=== PATIENT | male | born 1980 | race Caucasian/White ===

== ENCOUNTER 2017-08-11 15:47 | Emergency (ER) | payer SELFPAY ==
[~2017-08-11] VITALS: Ht 180.3 cm; Wt 158.3 kg
[~2017-08-11 15:47] MED LIST: BACT800T5 PO; HYDR-3533 PO; LISI-586 PO; TEST200I13 IM; ZOLP10TA3 PO
[2017-08-11 16:05] VITALS: BP 154/85; PULSE 109; RESP 16; TEMP 98.7; O2SAT 95
[2017-08-11] MEDS ORDERED: SODIUM CHLORIDE 0.9% FLUSH 10 ML FLUSH IVF PRN (16:15)
[2017-08-11 16:24] LABS: AUTOMATED NEUTROPHIL # 2.6 TH/MM3 (1.8-7.7); BASOPHIL % 0.3 % (0.0-2.0); EOSINOPHIL # 0.1 TH/MM3 (0-0.4); EOSINOPHIL % 1.3 % (0.0-4.0); HEMATOCRIT 47.7 % (39.0-51.0); HEMO FLAGS DIFF FINAL; LYMPH % 44.4 % (9.0-44.0); LYMPHOCYTE # 2.5 TH/MM3 (1.0-4.8); MEAN CELL VOLUME 91.5 FL (80.0-100.0); MEAN CORPUSCULAR HEMOGLOBIN 30.7 PG (27.0-34.0); MEAN CORPUSCULAR HGB CONC 33.5 % (32.0-36.0); MONO % 9.4 % (0.0-8.0); NEUT % 44.6 % (16.0-70.0); PLATELET COUNT 297 TH/MM3 (150-450); RED BLOOD COUNT 5.21 MIL/MM3 (4.50-5.90); WHITE BLOOD COUNT 5.7 TH/MM3 (4.0-11.0)
[2017-08-11 16:33] LABS: CHLORIDE 100 MEQ/L (98-107); POTASSIUM 4.1 MEQ/L (3.5-5.1); SODIUM (NA) 136 MEQ/L (136-145)
[2017-08-11] MEDS ORDERED: TEST200I12 IM (16:33)
[2017-08-11] MEDS ORDERED: DIPH25CA PO (16:33)
[2017-08-11] MEDS ORDERED: AMBI10TA PO (16:33)
[2017-08-11] MEDS ORDERED: LISI20TA PO (16:33)
[2017-08-11] MEDS ORDERED: AMLO5TAB2 PO (16:35)
[2017-08-11 16:37] LABS: ANION GAP 5 MEQ/L (5-15); BICARBONATE 31.2 MEQ/L (21.0-32.0); BLOOD UREA NITROGEN 11 MG/DL (7-18)
[2017-08-11 16:38] LABS: APTT (PATIENT) 25.2 SEC (24.3-30.1); PROTHROMBIN TIME - PATIENT 11.2 SEC (9.8-11.6)
[2017-08-11 16:40] LABS: ALT (GPT) 72 U/L (12-78); AST (GOT) 28 U/L (15-37); GLOMERULAR FILTRATION RATE 68 ML/MIN (>89)
[2017-08-11 16:42] LABS: TOTAL BILIRUBIN ADULT 0.3 MG/DL (0.2-1.0)
[2017-08-11 16:43] VITALS: RESP 16; O2SAT 95
[2017-08-11 16:43] LABS: ALKALINE PHOSPHATASE 62 U/L (45-117); CREATINE KINASE 165 U/L (39-308)
--- NOTE | 2017-08-11 16:49 | RADRPT ---
EXAM DATE/TIME: 08/11/2017 16:27 [facility] COMPARISON: CHEST PA & LAT, February 18, 2015, 17:43. INDICATIONS : Right side chest pain, short of breath, cough MEDICAL HISTORY : Hypertension. SURGICAL HISTORY : None. ENCOUNTER: Initial ACUITY: 1 day PAIN SCORE: 3/10 LOCATION: Bilateral chest FINDINGS: Portable AP view of the chest demonstrates a normal-sized cardiac silhouette. No effusion, consolidat ion, or pneumothorax is visualized. The bones and soft tissues demonstrate no acute abnormality. CONCLUSION: No acute cardiopulmonary abnormality is identified. Herman Wing MD on August 11, 2017 at 16:47 Board Certified Radiologist. This report was verified electronically.
[2017-08-11 16:55] LABS: CKMB 2.7 NG/ML (0.5-3.6)
[2017-08-11] MEDS ORDERED: IOHEXOL 350 MG/ML 10 ML VIAL (for RAD DIAG) IVCONTRAST ONE (17:00)
--- NOTE | 2017-08-11 17:41 | PD ---
HPI Chief Complaint: Chest Pain Time Seen by Provider: 15:54 Travel History International Travel<30 days: No Contact w/Intl Traveler<30days: No Traveled to known affect area: No History of Present Illness HPI 36-year-old male presents with right sided chest pain that started shortly after he got a testosterone shot. He states that after he developed the pain he coughed up a little bit of blood. He states that the pain is sharp. He denies other concurrent complaints. He denies trauma. Pain is worse with movement. He denies other modifying factors. Duration is shortly prior to arrival. He denies prior cardiac history. He states about 10 years ago he had a normal cardiac workup when he had chest pain symptoms. [facility] Past Medical History Diminished Hearing: No Hypertension: Yes Kidney Stones: Yes (QUESTIONABLE) Musculoskeletal: Yes (HX HERNIATED DISC) Immunizations Current: Yes Triglycerides - High: Yes Influenza Vaccination: No Social History Alcohol Use: Yes (MOST DAYS 1-2 DRINKS) Tobacco Use: No (NEVER) Substance Use: No Allergies-Medications (Allergen,Severity, Reaction): Coded Allergies: codeine (Unverified Allergy, Mild, 08/11/17) Reported Meds & Prescriptions Reported Meds & Active Scripts Active Reported Amlodipine (Amlodipine Besylate) 5 Mg Tab 5 Mg PO DAILY Diphenhydramine (Diphenhydramine HCl) 25 Mg Cap 25 Mg PO HS Ambien (Zolpidem Tartrate) 10 Mg Tab 10 Mg PO HS PRN Testosterone Cypionate Inj (Testosterone Cypionate) 200 Mg/Ml Inj 200 Mg IM Q21D Lisinopril-Hctz 20-12.5 Mg Tab 1 Tab PO DAILY Review of Systems Except as stated in HPI: all other systems reviewed are Neg Physical Exam Narrative GENERAL: Well-nourished, well-developed patient. SKIN: Warm and dry. HEAD: Normocephalic and atraumatic. EYES: No injection or drainage. ENT: No nasal drainage noted. NECK: Supple, trachea midline. CARDIOVASCULAR: Regular rate and rhythm RESPIRATORY: Breath sounds equal bilaterally. No accessory muscle use. GASTROINTESTINAL: Abdomen soft, non-tender, nondistended. EXTREMITIES: No edema. NEUROLOGICAL: Awake and alert. Motor and sensory grossly within normal limits. Normal speech. Data Data Last Documented VS Vital Signs Date Time Temp Pulse Resp B/P (MAP) Pulse Ox O2 Delivery O2 Flow Rate FiO2 08/11/17 19:04 08/11/17 18:45 92 16 95 Room Air 08/11/17 16:05 98.7 Orders Orders Electrocardiogram (08/11/17 16:06) Ckmb (Isoenzyme) Profile (08/11/17 16:06) Complete Blood Count With Diff (08/11/17 16:06) Comprehensive Metabolic Panel (08/11/17 16:06) Magnesium (Mg) (08/11/17 16:06) Prothrombin Time / Inr (Pt) (08/11/17 16:06) Act Partial Throm Time (Ptt) (08/11/17 16:06) Troponin I (08/11/17 16:06) Ecg Monitoring (08/11/17 16:06) Bilateral Bp Monitoring (08/11/17 16:06) Iv Access Insert/Monitor (08/11/17 16:06) Oximetry (08/11/17 16:06) Sodium Chloride 0.9% Flush (Ns Flush) (08/11/17 16:15) Chest, Pa & Lat (08/11/17 16:06) Ct Pulmonary Angiogram (08/11/17 ) CKMB (08/11/17 16:15) CKMB% (08/11/17 16:15) Iohexol 350 Inj (Omnipaque 350 Inj) (08/11/17 17:00) Ed Discharge Order (08/11/17 18:26) Labs Laboratory Tests Test 08/11/17 16:15 White Blood Count 5.7 TH/MM3 Red Blood Count 5.21 MIL/MM3 Hemoglobin 16.0 GM/DL Hematocrit 47.7 % Mean Corpuscular Volume 91.5 FL Mean Corpuscular Hemoglobin 30.7 PG Mean Corpuscular Hemoglobin Concent 33.5 % Red Cell Distribution Width 14.0 % Platelet Count 297 TH/MM3 Mean Platelet Volume 8.2 FL Neutrophils (%) (Auto) 44.6 % Lymphocytes (%) (Auto) 44.4 % Monocytes (%) (Auto) 9.4 % Eosinophils (%) (Auto) 1.3 % Basophils (%) (Auto) 0.3 % Neutrophils # (Auto) 2.6 TH/MM3 Lymphocytes # (Auto) 2.5 TH/MM3 Monocytes # (Auto) 0.5 TH/MM3 Eosinophils # (Auto) 0.1 TH/MM3 Basophils # (Auto) 0.0 TH/MM3 CBC Comment DIFF FINAL Differential Comment Prothrombin Time 11.2 SEC Prothromb Time International Ratio 1.0 RATIO Activated Partial Thromboplast Time 25.2 SEC Blood Urea Nitrogen 11 MG/DL Creatinine 1.20 MG/DL Random Glucose 145 MG/DL Total Protein 8.3 GM/DL Albumin 3.7 GM/DL Calcium Level 8.9 MG/DL Magnesium Level 2.0 MG/DL Alkaline Phosphatase 62 U/L Aspartate Amino Transf (AST/SGOT) 28 U/L Alanine Aminotransferase (ALT/SGPT) 72 U/L Total Bilirubin 0.3 MG/DL Sodium Level 136 MEQ/L Potassium Level 4.1 MEQ/L Chloride Level 100 MEQ/L Carbon Dioxide Level 31.2 MEQ/L Anion Gap 5 MEQ/L Estimat Glomerular Filtration Rate 68 ML/MIN Total Creatine Kinase 165 U/L Creatine Kinase MB 2.7 NG/ML Troponin I LESS THAN 0.02 NG/ML MDM Medical Decision Making Medical Screen Exam Complete: Yes Emergency Medical Condition: Yes Medical Record Reviewed: Yes (pmh confirmed) Interpretation(s) EKG is sinus tachycardia at 115 without STEMI criteria Last 24 hours Impressions Chest X-Ray 08/11/17 1606 Signed Impressions: Service Date/Time: Friday, August 11, 2017 16:27 - CONCLUSION: No acute cardiopulmonary abnormality is identified. Herman Wing MD CT Angiography 08/11/17 0000 Signed Impressions: Service Date/Time: Friday, August 11, 2017 17:27 - CONCLUSION: 1. Less than optimal opacification of the pulmonary arteries and therefore less than optimal evaluation for PE. No PE is identified through the lobar level arterial vessels. More distal PE cannot be excluded based on this exam. 2. Otherwise, no acute finding is identified to explain the chest pain. Herman Wing MD CBC & BMP Diagram 08/11/17 16:15 Total Protein 8.3 H, Albumin 3.7, Calcium Level 8.9, Magnesium Level 2.0, Alkaline Phosphatase 62, Aspartate Amino Transf (AST/SGOT) 28, Alanine Aminotransferase (ALT/SGPT) 72, Total Bilirubin 0.3 Differential Diagnosis PE, musculoskeletal, URI, bronchiectasis, atypical cardiac Narrative Course Will check blood work, chest x-ray, CT chest and reevaluate Lab work without emergent findings, CT chest is limited but shows no large PE, lengthy discussion with patient and he is wanting to go home. Offered observation versus delta troponin and he feels comfortable following up as an outpatient. Patient's only risk factor is hypertension and his presentation is atypical so I think this is okay. Given return instructions Diagnosis Primary Impression: Chest pain Qualified Codes: R07.9 - Chest pain, unspecified Additional Impression: Hemoptysis Patient Instructions: General Instructions Additional Instructions: follow with primary on sunday for referral to pulmonary and cardiology and reevaluation, return as needed, tylenol as needed Med/Other Pt SpecificInfo: No Change to Meds Disposition: 01 DISCHARGE HOME Condition: Stable Tanya Delaney MD Aug 11, 2017 17:41
--- NOTE | 2017-08-11 18:07 | RADRPT ---
EXAM DATE/TIME: 08/11/2017 17:27 [facility] COMPARISON: No previous studies available for comparison. INDICATIONS : Right chest pain and cough. IV CONTRAST: 99 cc Omnipaque 350 (iohexol) IV RADIATION DOSE: 21.80 CTDIvol (mGy) ; Patient body habitus MEDICAL HISTORY : Hypertension. Hyperlipedema, renal stones,HND SURGICAL HISTORY : Jaw ENCOUNTER: Initial ACUITY: 1 day PAIN SCALE: 5/10 LOCATION: Right chest TECHNIQUE: Volumetric scanning of the chest was performed using a pulmonary embolism protocol MIP images were re constructed. Using automated exposure control and adjustment of the mA and/or kV according to patien t size, radiation dose was kept as low as reasonably achievable to obtain optimal diagnostic quality images. DICOM format image data is available electronically for review and comparison. Follow-up recommendations for detected pulmonary nodules are based at a minimum on nodule size and pa tient risk factors according to Fleischner Society Guidelines. FINDINGS: PULMONARY ARTERIES: There is poor opacification of the pulmonary arteries with adequate visualization only through the lo bar level vessels. Through this level no PE is identified. More distal PE cannot be excluded on this examination. LUNGS: There is no consolidation or pneumothorax . No concerning pulmonary nodule is visualized. There is a 4 mm calcified granuloma in the right lower lobe. PLEURAE: There is no pleural thickening or pleural effusion. MEDIASTINUM: Heart and great vessels demonstrate no acute finding. No lymphadenopathy is present. There is an AP w indow lymph node that measures 9 mm in short axis diameter. MUSCULOSKELETAL: There are mild degenerative changes of the thoracic spine. MISCELLANEOUS: The visualized upper abdominal organs demonstrate no acute abnormality. CONCLUSION: 1. Less than optimal opacification of the pulmonary arteries and therefore less than optimal evaluati on for PE. No PE is identified through the lobar level arterial vessels. More distal PE cannot be exc luded based on this exam. 2. Otherwise, no acute finding is identified to explain the chest pain. Herman Wing MD on August 11, 2017 at 18:02 Board Certified Radiologist. This report was verified electronically.
[2017-08-11 18:45] VITALS: BP 138/81; PULSE 92; RESP 16; O2SAT 95
--- NOTE | 2017-08-12 12:55 | EKG ---
Date Performed: 08/11/2017 Time Performed: 15:55:31 PTAGE: 36 years EKG: SINUS TACHYCARDIA LOW QRS VOLTAGE IN PRECORDIAL LEADS NONSPECIFIC ST ELEVATION ABNORMAL RHY THM ECG INTERPRETATION BASED ON A DEFAULT AGE OF 40 YEARS PREVIOUS TRACING : 11/23/2007 18.33 Since previous tracing, precordial lead voltage is sl ightly lower; otherwise, no significant change. DOCTOR: Tushar Pratt Interpretating Date/Time 08/12/2017 12:53:38
== END 2017-08-11 19:05 | disposition home or self-care (01) ==
LOC: PHED 15:47
DX: R07.9 Chest pain, unspecified (principal); R04.2 Hemoptysis; R94.31 Abnormal electrocardiogram [ECG] [EKG]; I10 Essential (primary) hypertension; E78.1 Pure hyperglyceridemia; Z87.39 Personal history of other diseases of the musculoskeletal system and connective tissue
CPT/HCPCS: 71020; 71275; 80053; 82550; 82552; 83735; 84484; 85025; 85610; 85730; 93005; 99285; Q9967

== ENCOUNTER 2017-09-13 13:35 | Emergency (ER) | payer OTHER ==
[~2017-09-13] VITALS: Ht 180.3 cm; Wt 158.0 kg
[~2017-09-13 13:35] MED LIST changes: +AMBI10TA PO; +AMLO5TAB2 PO; -BACT800T5 PO; +DIPH25CA PO; -HYDR-3533 PO; -LISI-586 PO; +LISI20TA PO; +TEST200I12 IM; -TEST200I13 IM; -ZOLP10TA3 PO
[2017-09-13 13:46] VITALS: BP 127/77; PULSE 103; RESP 18; TEMP 98.2; O2SAT 93
[2017-09-13] MEDS ORDERED: KETOROLAC TROMETHAMINE 30 MG/ML (IVP) VIAL IV PUSH ONE (14:30)
[2017-09-13] MEDS ORDERED: SODIUM CHLORIDE 0.9% FLUSH 10 ML FLUSH IV FLUSH PRN (14:30)
--- NOTE | 2017-09-13 14:31 | PD ---
HPI Chief Complaint: Pain: Acute or Chronic Time Seen by Provider: 14:19 Travel History International Travel<30 days: No Contact w/Intl Traveler<30days: No Traveled to known affect area: No History of Present Illness HPI Patient comes in complaining of right knee pain ongoing for 3 days. Patient describes pain is pressure-like sensation over his anterior knee. Pain is worse with walking or standing. Patient states he went bowling the night before but denies any trauma. Patient reports he's been using crutches, taking ibuprofen, and alternating between heat and ice. Patient also has concerns that his potassium and magnesium may be off. Patient states that he had diarrhea 2 weeks ago and since has had multiple muscle cramps. Patient states he increased his potassium and magnesium supplements as is a history of low potassium causing his heart to flutter. Patient does have some cramping in his right lower extremity denies anything making it better or worse. PFSH Past Medical History Diminished Hearing: No Hypertension: Yes Kidney Stones: Yes (QUESTIONABLE) Musculoskeletal: Yes (HX HERNIATED DISC) Immunizations Current: Yes Triglycerides - High: Yes Tetanus Vaccination: Unknown Social History Alcohol Use: Yes (MOST DAYS 1-2 DRINKS) Tobacco Use: No (NEVER) Substance Use: No Allergies-Medications (Allergen,Severity, Reaction): Coded Allergies: codeine (Unverified Allergy, Mild, 08/11/17) Reported Meds & Prescriptions Reported Meds & Active Scripts Active Hydrocodone-Acetaminophen 10-325 mg Tab 1 Tab PO Q4H PRN Tramadol (Tramadol HCl) 50 Mg Tab 50 Mg PO Q8H PRN Flexeril (Cyclobenzaprine HCl) 10 Mg Tab 10 Mg PO Q8HR PRN Naprosyn (Naproxen) 500 Mg Tab 500 Mg PO Q12HR PRN Reported Amlodipine (Amlodipine Besylate) 5 Mg Tab 5 Mg PO DAILY Diphenhydramine (Diphenhydramine HCl) 25 Mg Cap 25 Mg PO HS Ambien (Zolpidem Tartrate) 10 Mg Tab 10 Mg PO HS PRN Testosterone Cypionate Inj (Testosterone Cypionate) 200 Mg/Ml Inj 200 Mg IM Q21D Lisinopril-Hctz 20-12.5 Mg Tab 1 Tab PO DAILY Review of Systems Except as stated in HPI: all other systems reviewed are Neg Physical Exam Narrative GENERAL: Well-developed, overly nourished, in no acute distress, and non-ill appearing. SKIN: Focused skin assessment warm and dry. HEAD: Atraumatic. Normocephalic. EYES: Pupils equal and round. EOMI. No scleral icterus. No injection or drainage. ENT: No nasal bleeding or discharge. Mucous membranes pink and moist. NECK: Trachea midline. Supple. No nuclear rigidity. RESPIRATORY: No accessory muscle use. No respiratory distress. MUSCULOSKELETAL: No obvious deformities. No clubbing. No cyanosis. No edema. Decreased range of motion right knee secondary to pain. Knee: Negative patellar apprehension, varus and valgus maneuvers, anterior draw test, and Dane test. FROM distal to injury and equal BL. Strength distal to injury equal BL. NV intact distal to injury. Sensation equal BL 1st web space. Patient is a fluid collection noted over the patella right knee is tender to palpation. Is afebrile nonerythematous, and without crepitus. NEUROLOGICAL: Awake and alert. No obvious cranial nerve deficits. Motor grossly within normal limits. Normal speech. PSYCHIATRIC: Appropriate mood and affect; insight and judgment normal. Data Data Last Documented VS Vital Signs Date Time Temp Pulse Resp B/P (MAP) Pulse Ox O2 Delivery O2 Flow Rate FiO2 09/13/17 15:40 09/13/17 13:46 98.2 103 18 93 Room Air Orders Orders Basic Metabolic Panel (Bmp) (09/13/17 14:29) Iv Access Insert/Monitor (09/13/17 14:29) Sodium Chloride 0.9% Flush (Ns Flush) (09/13/17 14:30) Ketorolac Inj (Toradol Inj) (09/13/17 14:30) Magnesium (Mg) (09/13/17 14:29) Ed Discharge Order (09/13/17 15:30) Splint Or Brace Apply/Monitor (09/13/17 15:30) Labs Laboratory Tests Test 09/13/17 14:45 Blood Urea Nitrogen 9 MG/DL Creatinine 1.00 MG/DL Random Glucose 109 MG/DL Calcium Level 8.7 MG/DL Magnesium Level 2.2 MG/DL Sodium Level 134 MEQ/L Potassium Level 3.8 MEQ/L Chloride Level 96 MEQ/L Carbon Dioxide Level 31.6 MEQ/L Anion Gap 6 MEQ/L Estimat Glomerular Filtration Rate 84 ML/MIN [facility] Medical Decision Making Medical Screen Exam Complete: Yes Emergency Medical Condition: Yes Differential Diagnosis Fracture, strain, bursitis, gout, arthritis, septic joint, metabolic disturbance , muscle cramps Narrative Course The patient appears to have acute bursitis involving the right knee. There is no evidence to suggest infectious bursitis at this time. There is no trauma to suspect contusion, strain or fracture. There is no clinical evidence to suggest gout or pseudogout, osteoarthritis, Rheumatoid arthritis, or septic arthritis. There is also no evidence to suggest tendonitis. The patient was placed on pain medications and NSAID medication. The patient was instructed on ice packs as well. The patient was referred to orthopedics. Patient in no obvious distress upon re-evaluation. All pertinent laboratory result(s) discussed with patient. Patient was seen and evaluated by Dr. Randolph that the patient request secondary to wanting something stronger for pain. Any questions/concerns in reference to patient diagnosis/condition discussed and clarified prior to patient's discharge. Reinforced sheer importance of close follow up with patient's primary physician or primary care clinic and/or orthopedic. Instructed patient to return to ED immediately, if symptoms return/worsen. Patient showed understanding of above instructions. Further instructions and recommendations were detailed in discharge paperwork. Patient left without difficulty out of ED at discharge. Diagnosis Primary Impression: Bursitis of right knee Qualified Codes: M70.51 - Other bursitis of knee, right knee Additional Impression: Muscle cramp Referrals: Melissa Schultz MD Patient Instructions: General Instructions, Knee Bursitis (ED), Muscle Cramp ( ED) Additional Instructions: Follow-up with your primary care physician and or orthopedic in 3-5 days for reevaluation. Take all medication as prescribed. Wear Rajeev wrap for comfort. Apply ice to affected area 20 minutes per hour as needed for pain. Return to the emergency department if symptoms get worse. Med/Other Pt SpecificInfo: Prescription(s) given Scripts Hydrocodone-Acetaminophen (Hydrocodone-Acetaminophen) 10-325 mg Tab 1 TAB PO Q4H Y for PAIN, #15 TAB 0 Refills Prov: Yared Verdugo MD 09/13/17 Tramadol (Tramadol) 50 Mg Tab 50 MG PO Q8H Y for PAIN GREATER THAN 7, #7 TAB 0 Refills Prov: Yared Verdugo MD 09/13/17 Cyclobenzaprine (Flexeril) 10 Mg Tab 10 MG PO Q8HR Y for MUSCLE SPASM, #15 TAB 0 Refills Prov: Yared Verdugo MD 09/13/17 Naproxen (Naprosyn) 500 Mg Tab 500 MG PO Q12HR Y for PAIN SCALE 1 TO 10, #14 TAB 0 Refills Prov: Yared Verdugo MD 09/13/17 Disposition: 01 DISCHARGE HOME Condition: Stable Talha Hernandez Sep 13, 2017 14:31
[2017-09-13 15:13] LABS: POTASSIUM 3.8 MEQ/L (3.5-5.1)
[2017-09-13 15:16] LABS: BICARBONATE 31.6 MEQ/L (21.0-32.0); MAGNESIUM 2.2 MG/DL (1.5-2.5)
[2017-09-13] MEDS ORDERED: NAPR500 PO (15:31)
[2017-09-13] MEDS ORDERED: TRAM50TA PO (15:35)
[2017-09-13] MEDS ORDERED: CYCL10TA PO (15:35)
[2017-09-13] MEDS ORDERED: HYDR-3583 PO (15:57)
== END 2017-09-13 16:14 | disposition home or self-care (01) ==
LOC: PHEFT 13:35
DX: M70.51 Other bursitis of knee, right knee (principal); I10 Essential (primary) hypertension; Z79.899 Other long term (current) drug therapy
CPT/HCPCS: 80048; 83735; 96372; 99284; J1885